=== PATIENT | male | born 1955 | race Caucasian/White ===

== ENCOUNTER 2024-02-28 21:02 | Inpatient (IN) | payer OTHER, SELFPAY ==
[2024-02-28] VITALS (17 sets, daily range): BP systolic 94–116; BP diastolic 25–82; BMI 41.1; BMI 39.2
[2024-02-28 18:54] LABS: % Basophils 0.1 % (0-2); % Immature Granulocytes 0.3 % (0-0.5); % Lymphocytes 18.8 % (20.5-51.1); % Monocytes 10.3 % (1.7-9.3); % Neutrophils 69.5 % (42.2-75.2); Absolute Eosinophils 0.1 10^3/uL (0-0.7); Absolute Lymphocytes 1.4 10^3/uL (1.2-3.4); Absolute Monocytes 0.8 10^3/uL (0.1-0.6); Absolute Neutrophils 5.3 10^3/uL (1.4-6.5); Hemoglobin 5.3 g/dL (13.0-18.0); Mean Corp Hgb Conc. 33.1 g/dL (33.0-37.0); Mean Corpuscular Hgb 33.8 pg (27.0-31.0); Mean Corpuscular Volume 101.9 fL (80.0-94.0); Mean Platelet Volume 9.2 fL (7.4-10.4); Nucleated Red Blood Cells % 0 % (-); Platelet Count 316 10^3/uL (130-400); Red Blood Cell Count 1.57 10^6/uL (4.70-6.10); Red Cell Dist. Width 19.5 % (11.5-14.5); White Blood Cell Count 7.7 10^3/uL (4.8-10.8)
[2024-02-28 19:06] LABS: NT-proBNP 2060 pg/ml
[2024-02-28 19:07] LABS: ALT (SGPT) 24 U/L (0-50); AST (SGOT) 31 U/L (17-59); Albumin 3.4 g/dl (3.5-5.0); Alkaline Phosphatase 49 U/L (38-126); Blood Urea Nitrogen 53 mg/dl (9-20); Calcium 8.8 mg/dl (8.4-10.2); Carbon Dioxide 17 mmol/L (22-30); Chloride 111 mmol/L (98-107); Glucose 128 mg/dl (70-99); Sodium 142 mmol/L (135-145); Total Bilirubin 0.8 mg/dl (0.2-1.3); Total Protein 5.7 g/dl (6.3-8.2); eGFR > 60.00
--- NOTE | 2024-02-28 19:37 | ED.GENMED ---
History of Present Illness
General
Chief Complaint: Chest Pain
Source: patient
Exam Limitations: none
Time Seen by Provider: 02/28/24 19:06
Nursing documentation reviewed up to this point in time: agreed with
History of Present Illness
History of Present Illness:
This is a 68-year-old gentleman who has history of A-fib chronically maintained on Eliquis, history of hypertension, eab-uxgzldh-fiatfqerj, history of gastric bypass, iron deficiency anemia chronically maintained on twice daily oral iron. He has
history of rheumatoid arthritis maintained on Humira as well as methotrexate. He also has history of DJD of left knee, follows with orthopedics every 3 months for steroid injections to his knee, last performed December of this year. Due to
increased pain of his left knee over the past month he has been taking a few doses of ibuprofen generally just once a day over the past 2 to 3 weeks. Because of twice daily oral iron he admits that his stools are always dark in color but 1 month
ago he had 1 to 2 days of loose stools that were very black in color describes this as 'tar in consistency' He denies bright red blood in his has had no nausea nor vomiting.
He has been somewhat fatigued over the past month but more so over the past week with progressive dyspnea on exertion and progressive exertional chest pain worse over the past 4 to 5 days. He has had intermittent lightheadedness more so with brief
activity but no syncopal events nor falls.
No history of similar episodes in the past.
Patient states he underwent colonoscopy a number of years ago that was unremarkable. Since then he has been performing Cologuard tests every 3 years last of which was (-)1-year ago.
History of ift-jodcnpy-eflipipzz diabetes maintained on semaglutide with reported 100 pound weight loss since starting Ozempic. He states his hemoglobin A1c has been well-controlled at around 6.
He was given prescription for laboratory studies by his PCP 1 month ago but admits that he has been too fatigued to have these done.
Past History
Past History
ED Past Medical History: Arrthythmia (Atrial fibrillation), HTN, Hypercholesterolemia, NIDDM and Other (Rheumatoid arthritis, DJD of knees, obesity)
ED Past Surgical History: Bowel resection (Gastric bypass), Cholecystectomy and Orthopedic (Right total knee replacement)
Social History
Tobacco: Former smoker
Alcohol: None
Personal:
Living: with family
Employment: Retired
Family History
Family History: Other (Noncontributory)
Phy Exam
Physical Exam
Physical Exam:
GENERAL: 68-year-old obese gentleman appears his stated age, bright and alert, pleasant, appears in no acute distress. Quite pale in appearance. Conjunctiva
EYE: pupils equal and reactive. Pale conjunctiva. Anicteric
NECK: Supple, nontender, no meningismus, no significant adenopathy.
ENT: oral mucosa is moist. No rhinorrhea.
CARDIAC: irregularly irregular at a rate of 90, no murmur.
LUNGS: Clear breath sounds bilaterally, no acute respiratory distress, no wheezes/rales/rhonchi
ABDOMEN: Rotund, soft, nondistended, without focal tenderness, no r/g, no cvat. normoactive BS. Rectal exam reveals scant firm black stool that is heme positive.
NEUROLOGICAL: Alert and oriented x3, no focal neuro deficits.
SKIN: Warm and dry, significantly pale in color, skin intact. No rash.
MUSCULOSKELETAL: No C/C/E. peripheral pulses are full and equal b/l. No palpable tenderness.
PSYCH: Normal and appropriate interaction.
Scores
Heart Score for Chest Pain Patients
STEMI patient?: No
History: Moderately Suspicious
ECG: Normal
Age: >/= 65 years
Risk Factors: 1 or 2 Risk Factors
Troponin: </= Normal Limit
Heart Score for Chest Pain Patients: 4
Heart Score Risk: 20.3% MACE over next 6 weeks
Course
Orders/Labs/Results
Orders:
Orders
02/28/24 Dinner
NPO
Allow oral meds: Yes
Allow clear liquids: Sips of Clears
02/28/24 18:16
Electrocardiogram (*1) Urgent
Reason for Study: Chest Pain
EKG- Treatment ONCE
02/28/24 18:40
CBC/With Diff [Complete Blood Count/With Diff] Urgent
CMP [Comprehensive Metabolic Panel] Urgent
Ferritin Urgent
Comment: ADD ON
Iron Urgent
Comment: ADD ON
Pro-BNP [NT-proBNP] Urgent
Total Iron Binding Urgent
Comment: ADD ON
02/28/24 19:01
Type+Screen Urgent
02/28/24 19:34
Blood Bank Products [* Blood Bank Products] Urgent
Blood Bank Products: *Packed RBC Leuko(PRBC's)
Quantity: 2
Transfuse Today: Yes
Reason: Anemia
Patient will require pre-treatment for transfusion:: No
02/28/24 19:35
Add On- LAB Urgent
Tests Added?: Fe, IBC, ferritin
02/28/24 19:36
ABO2 Urgent
Recorded [facility] Wristband Number:
Associate notified that ABO2 has been ordered: [id number]
Date: 02/28/24
Time: 19:48
[facility] ID: [id number]
Troponin I Urgent
Pantoprazole 80 mg/100 ml Nss [Protonix] 80 mg in 100 ml IV NOW
Pantoprazole [Protonix IV] 80 mg IV NOW STA
02/28/24 20:28
Admit/Transfer Patient As Directed
Co-Sign Provider:
Level of Care: Inpatient admission
Assign to:: IMU- Intermediate Care
Physician / Group: hospitalist
Diagnosis: GI bleed
Reason for Hospitalization: GI bleed
Expected length of stay greater than two midnights?: Yes
ELOS- Estimated Length of Stay in days: 2
I certify the patient meets the requirements for IP care: Yes
PRN Pain Medication Management As Directed
May give lesser potent ordered pain med per pt: Yes
preference::
Protocol:: Medication orders for pain may be administered in a
manner that supports deferring to patient preference
when the pt is:
- Requesting an ordered lesser potent pain medication.
Least to most potent pain medications are defined
as: acetaminophen < NSAID < tramadol < opioids
(morphine, oxycodone, hydromorphone).
- Requesting a lesser dose of the same medication IF
ORDERED.
- Requesting a less intrusive route of administration
if both routes are prescribed by the provider (PO <
IV).
02/28/24 20:29
Code Status As Directed
Resuscitation Status: Full Code
02/28/24 20:59
Metoclopramide [Reglan] 10 mg .ROUTE .STK-MED ONE
02/28/24 21:02
Metoclopramide [Reglan] 10 mg IV NOW STA
02/28/24 22:07
Acetaminophen [Tylenol] 650 mg PO Q6HPRN PRN
Ondansetron Injectable [Zofran] 4 mg IV Q6HPRN PRN
02/28/24 22:07
Activity As Directed
Activity Level: With Assistance
Bedside Glucose Monitoring As Directed
Frequency: Q6H
INT (Intravenous Needle Therapy) As Directed
Comment: Place 2 IV catheters of the largest bore possible until stable
Orthostatic Vital Signs As Directed
Orthostatic VS Frequency: Now
Comment: then every four hours for twenty-four hours
Pneumatic Compression Sleeves As Directed
Type: Knee high
Vital Signs As Directed
Frequency: Per unit guidelines
DX Deep Vein Thrombosis Video Routine
02/28/24 23:00
H&H Q8H
02/29/24 00:00
Insulin Aspart Corrective Low [Novolog Flexpen-Low Resistance] See Protocol SC Q6H
02/29/24 05:36
Pantoprazole 80 mg/100 ml Nss [Protonix] 80 mg in 100 ml IV Q10H
02/29/24 06:00
Folate IN AM
Iron IN AM
Total Iron Binding IN AM
Vitamin B12 IN AM
02/29/24 08:00
FOLic ACID [Folvite] 1 mg PO DAILY
Losartan [Cozaar] 100 mg PO DAILY
03/01/24 11:00
DC Protocol for Telemetry ONCE
Abnormal Lab Results
02/28/24 02/28/24
18:40 19:01
RBC 1.57 L 10^6/uL
(4.70-6.10)
Hgb 5.3 L* g/dL
(13.0-18.0)
Hct 16.0 L* %
(39.0-52.0)
MCV 101.9 H fL
(80.0-94.0)
MCH 33.8 H pg
(27.0-31.0)
RDW 19.5 H %
(11.5-14.5)
Absolute Monos (auto) 0.8 H 10^3/uL
(0.1-0.6)
Lymphocytes % 18.8 L %
(20.5-51.1)
Monocytes % 10.3 H %
(1.7-9.3)
Chloride 111 H mmol/L
(98-107)
Carbon Dioxide 17 L mmol/L
(22-30)
BUN 53 H mg/dl
(9-20)
Glucose 128 H mg/dl
(70-99)
Iron 242 H ug/dl
(49-181)
% Saturation 82 H %
(20-50)
Total Protein 5.7 L g/dl
(6.3-8.2)
Albumin 3.4 L g/dl
(3.5-5.0)
Crossmatch IS Only See Detail
02/28/24 18:40
02/28/24 18:40
Vital Signs
Initial and Last Documented VS:
Initial Vital Signs
Temp Pulse Resp BP Pulse Ox
97.6 F 87 16 107/60 100
02/28/24 18:22 02/28/24 18:22 02/28/24 18:22 02/28/24 18:22 02/28/24 18:22
Last Documented Vital Signs
Temp Pulse Resp BP Pulse Ox
97.7 F 79 14 125/56 99
02/29/24 01:23 02/29/24 01:23 02/29/24 01:23 02/29/24 01:23 02/29/24 00:00
MDM/Problems Addressed
Differential Diagnosis Includes:
Concern for symptomatic anemia, GI bleed, acute coronary syndrome, CHF.
Labs thus far show significant anemia with hemoglobin of 5.3.
History and exam most consistent with severe, symptomatic anemia.
Rectal exam is heme positive and reported black stools, ibuprofen use I suspect slow upper GI bleed as source of anemia.
He does no prior history of iron deficiency but no prior history of GI bleed. I suspect iron deficiency thought to be related to prior gastric bypass.
EKG shows atrial fibrillation with controlled ventricular response. No evidence of ischemia. Troponin is pending.
BNP is elevated at 2000. Patient may have an element of CHF however appears comfortable at rest and lungs are overall clear to auscultation. Will check chest x-ray.
Patient will be typed and crossed and transfused 2 units of packed red blood cells this evening for severe anemia.
Will initiate IV Protonix bolus and drip for suspected, occult upper GI bleed.
Will add iron studies to blood in the lab.
Will admit to hospitalist service.
Chronic conditions affecting care: DM, HTN, Arrhythmia, Previous abdomnial surgery (Gastric bypass) and Immunosuppressed (Chronically maintained on Humira and methotrexate)
*Pulse Oximetry
Patient hypoxic: no
*EKG
Interpreted by ED Provider?: Yes
Comparison EKG: no comparison EKG present
Rate: normal
Rhythm: a-fib
[place]: normal axis
Interval: long QT
QRS Pattern: normal QRS
Ischemia: no ischemia
*[employer]ip[employer] Worker Interpretation
Rate: normal
Rhythm: a-fib
*Critical Care Note
Total Time (30-74mins, 75-104mins- exclusive of procedures): 30
comment:
Critical care statement: A total of 30 minutes of critical care time was provided for this patient. This includes management of unstable vital signs, evaluation of the patient at bedside, reviewing the patient's pertinent medical records, discussion
with consultants, review of old EKGs and review of pertinent medical records. This time with separate from time utilized to perform the aforementioned documented procedures
Update Note
Update Note:
Patient has begun to pass numerous black liquid stools, and is insistent on using bedside commode. While doing so he becomes significantly tachycardic and short of breath but continues to deny dizziness nor lightheadedness but blood pressure
somewhat soft in the 90s while sitting on commode.
Blood transfusion has been initiated.
Due to significant tachycardia, mild hypotension with significant orthostasis, ongoing GI bleed, coagulopathy related to Eliquis, will reverse Eliquis with Kcentra, continue IV fluids, IV Protonix and patient will be admitted to IMU.
ED Attending Note
-
Portions of this chart may have been created with voice recognition software.� Occasional wrong word or��sound alike� substitutions may have occurred due to the inherent limitations of voice recognition software.
Discharge Plan
Departure
Patient Disposition: Admit
Date of Disposition: 02/28/24
Time of Disposition: 19:44
Admit to: IMU
Admit to doctor: Dread
Presentation/result/management discussed w/ accepting MD/DO: Hospitalist
Condition: Serious
Discharge Problem:
Acute upper gastrointestinal hemorrhage, severe symptomatic anemia, Exertional angina, Chronic atrial fibrillation
Interventions
Interventions:
*Risk Screen - Suicide Last Done: 02/28/24 22:39
*General Assessment Last Done: 02/28/24 18:56
*Neglect/Abuse Screening Last Done: 02/28/24 18:23
ED- Fall Risk Assessment Last Done: 02/28/24 19:11
*ED COVID-19 Vaccine History Last Done: 02/28/24 22:39
*Nursing Disposition Last Done: 02/28/24 22:21
ED- Cardiac Assessment Last Done: 02/28/24 19:11
Discharge Date and Time
Discharge Date/Time: 02/28/24 22:22
[2024-02-28] MEDS: PROTONIX IV 80 MG IV (19:47)
[2024-02-28] MEDS: PROTONIX 100 IV (19:49)
[2024-02-28 20:14] LABS: Troponin I < 0.012 ng/ml
[2024-02-28 20:35] LABS: Iron 242 ug/dl (49-181)
[2024-02-28 20:44] LABS: Percent Saturation 82 % (20-50); Total Iron Binding Capacity 295 ug/dl (261-462)
--- NOTE | 2024-02-28 20:47 | HPS.HSE ---
Family Physician
-
Family Physician: Isael Recinos
Chief Complaint
-
Melena
History of Present Illness
68-year-old male with past medical history significant for hypertension, paroxysmal atrial fibrillation on anticoagulation with apixaban and jdz-snctbvt-jygjwrcaq diabetes as well as diarrhea presenting to the emergency department with melena and
shortness of breath.
Patient reported that he has been having worsening pain in the left knee and he has been using additional ibuprofen which he was using before. He takes 400 mg of ibuprofen twice a day at least for the last 2 weeks. He states that he is on iron
supplementation because he had a low hemoglobin was about a year ago and his last hemoglobin measured in his system was actually fifteen 1 year ago. Patient reported that his stools have always been darkish green due to the iron supplementation.
However 4 days ago started having dark tarry stools. He denied having any abdominal pain. He denied any nausea or vomiting. He denied hematochezia. He reports feeling lightheaded and dizzy. He reports dyspnea on exertion with any physical
activity. He reported that 3 days ago he was told by his daughter that he appeared pale. Overnight he had an episode of chest pain radiating to his left arm lasting a few minutes but is currently resolved. Denies prior history of GI bleed. No
recent endoscopic colonoscopy.
In the ED the patient actually had a large melanotic bowel movement. He was guaiac positive.
Blood pressure was 100/50, pulse was 80s and he was satting 98% on room air. Hemoglobin was 5.3 with an MCV of 101. Platelet count was normal. Troponin was negative at 0.012. ECG was unremarkable with A-fib at a rate of 91 and no ischemic
changes. Chemistries were within normal limits except for a bicarb of 17.
Medical History
Past Medical History
Past Medical History: Reports Arrhythmia (Home atrial fibrillation) and HTN
Additional Past Medical History:
Anemia/iron deficiency
Past Surgical History: Reports Orthopedic
Additional Past Surgical History:
Right total knee arthroplasty
Social History
Tobacco: Non-smoker
Alcohol: None
Drug: None
Personal:
Living: With Family
Family History
Family History: Not pertinent
Allergies / Home Medications
Allergies reflects when Allergies were last updated in [facility].
Home Medications with original date entered in [facility]
Allergy/Medication List:
Allergies
Allergy/AdvReac Type Severity Reaction Status Date / Time
morphine Allergy Unknown Verified 02/28/24 18:21
Home Medications
adalimumab 40 mg/0.4 mL subcutaneous syringe kit (Humira(CF)) 40 mg SC WE 02/28/24
apixaban 5 mg tablet (Eliquis) 5 mg PO BID 02/28/24
cholecalciferol (vitamin D3) 125 mcg (5,000 unit) tablet 125 mcg PO DAILY 02/28/24
ferrous sulfate 325 mg (65 mg iron) tablet 325 mg PO BID 02/28/24
folic acid 1 mg tablet 1 mg PO DAILY 02/28/24
losartan 100 mg tablet 100 mg PO DAILY 02/28/24
metformin 500 mg tablet 500 mg PO DAILY 02/28/24
methotrexate 1 ml SC WE 02/28/24
pravastatin 10 mg tablet 10 mg PO HS 02/28/24
semaglutide 1 mg/dose (4 mg/3 mL) subcutaneous pen injector (Ozempic) 1 mg SC WE 02/28/24
tadalafil 10 mg tablet 10 mg PO DAILYPRN PRN ed 02/28/24
Review of Systems
-
Constitutional: Reports No Symptoms and Fatigue
EENT: Reports No Symptoms
Respiratory: Reports Trouble Breathing
Cardiac: Reports Chest Pain
Abdomen/GI: Reports Black Stools
: Reports No Symptoms
Musculoskeletal: Reports No Symptoms
Skin: Reports No Symptoms
Neurological: Reports No Symptoms
Endocrine: Reports No Symptoms
Hematologic/Lymphatic: Reports No Symptoms
Psych: Reports No Symptoms
Physical Exam
Vital Signs
Vital Signs
Temp Pulse Resp BP Pulse Ox
97.6 F 93 23 103/52 100
02/28/24 18:22 02/28/24 20:34 02/28/24 20:34 02/28/24 20:34 02/28/24 19:45
Physical Exam
General: No Apparent Distress and Conversant
HEENT: NormoCephalic, Moist mucous membranes, Atraumatic and PERRLA
Respiratory: Clear
Cardiac: S1/S2 and Irregular Rhythm
Breast: Deferred by me
GI: Soft, Non Tender, Non Distended and Normal Bowel Sounds
Rectal: Black and Hem Positive
Genito-urinary: Deferred by me
Musculoskeletal: No Clubbing, No Cyanosis and No Edema
Skin: Other (pale appearing)
Neuro: AO x 3 and Nonfocal/grossly intact
Psych: Calm
Laboratory Results
-
02/28/24 18:40
02/28/24 18:40
Laboratory Results
Total Bilirubin 0.8 mg/dl (0.2-1.3) 02/28/24 18:40
AST 31 U/L (17-59) 02/28/24 18:40
ALT 24 U/L (0-50) 02/28/24 18:40
Alkaline Phosphatase 49 U/L (38-126) 02/28/24 18:40
Troponin I < 0.012 ng/ml 02/28/24 19:36
Data Reviewed
-
Diagnostic Radiology: Image Personally Visualized and interpreted
Medical Tests (Nuc Med, Echo, EKG etc): Image Personally Visualized and interpreted
Lab Data: Labs Reviewed by me
Old Records: Reviewed
Impression/Plan
-
IMPRESSION:
PLAN:
1.GI Bleed - Upper GI bleed in setting of NSAID and Anticoagulation with apixaban over the last 2 weeks or more. Likely subacute episode with a slow downward trend in hemoglobin for a few weeks. MCV however elevated. Hemodynamically stable at
this time. Hemodynamically unstable with MAP < 56. Hgb 5.3
- admit to telemetry
- NPO except sips and clears
- bolus 1 L NS
- holding apixaban, last dose was about 3 hours ago, no charcoal.
- Kcentra
- type and screen and transfuse for goal hgb of 7
- protononix gtt
- holding losartan
- iron indices and anemia panel
- GI consultation
2. AFIB
- holding apixaban. Rate control off any beta blockade
3. DM II
- holding metformin
- blood glucose checks q 6 with sliding scale
[2024-02-28] MEDS: REGLAN 10 MG IV (21:03)
[2024-02-28 21:16] LABS: Ferritin 48.6 ng/ml (17.9-464.0)
[2024-02-28] MEDS: NSS 250 IV ×2 (21:22→21:50)
[2024-02-28 21:36] LABS: INR 2.06; PT 23.3 Sec (11.4-14.6)
[2024-02-28 21:37] LABS: APTT 33.2 Sec (23.4-35.0)
[2024-02-28] MEDS: KCENTRA 100 UNIT IV (21:42)
--- NOTE | 2024-02-28 22:50 | PTCARENOTE ---
Pt arrives from ED on stretcher. Pulled pt over to bed. Patient receiving 1 unit of blood. 1 more unit ordered. Did hand off with ED RN. Patient on protonix gtt. Assessed patient-see flowsheet. Went over pt being on bed rest due to low hgb. Pt
understands its for his safety. Call smith within reach. 2nd order of blood called for.
[2024-02-29] VITALS (35 sets, daily range): BP systolic 101–142; BP diastolic 44–103; BMI 39.2
[2024-02-29 00:19] LABS: Glucose - Point of Care 139 mg/dl (70-99)
[2024-02-29 04:34] LABS: INR 1.56; PT 18.9 Sec (11.4-14.6)
[2024-02-29 04:41] LABS: Hematocrit 17.8 % (39.0-52.0); Hemoglobin 6.1 g/dL (13.0-18.0)
[2024-02-29 04:49] LABS: Iron 211 ug/dl (49-181); Percent Saturation 83 % (20-50); Total Iron Binding Capacity 253 ug/dl (261-462)
--- NOTE | 2024-02-29 05:02 | W.PN.UPDATE ---
Update Note
Progress Note Update
RN notified Hgb 6.1/17.8, Patient stable, stable VS 112/50, 70's, 97.8, 20, 99%, Consent signed and in chart, will order 1 unit PRBC's.
[2024-02-29] MEDS: PROTONIX 100 IV ×2 (05:33→15:09)
[2024-02-29 05:45] LABS: Folate 19.5 ng/ml (2.76-20); Vitamin B12 230 pg/ml (239-931)
[2024-02-29 05:59] LABS: Glucose - Point of Care 117 mg/dl (70-99)
--- NOTE | 2024-02-29 07:06 | CON.GI ---
Addendum entered and electronically signed by Goldie James DO 02/29/24 08:55:
I saw and examined the patient.
The OUTREACH LIAISON or PA's note was reviewed and I agree with the note.
Comment: 68-year-old male with past medical history of A-fib on Eliquis, type 2 diabetes on metformin and ozempic (last dose 02/26), hx CHELSI, RA on Humira and MTX, Hx gastric bypass (2001), HTN, hx seizure d/o, nephrolithaisis admitted with dizziness,
shortness of breath and black tarry stool in the setting of heavy NSAID use. Hemoglobin on arrival 5.3 --> 6.2 following 2 units of PRBC, received a 3rd unit this morning; BUN elevated to 53. He had 2 large burgundy stools in the ER, no BM since
that time.
He was mildly hypotensive with BPs in the 90/60s and tachycardic, but has remained hemodynamically stable with fluid resuscitation. INR 2.06 --> 1.56 following kcentra.
#Symptomatic Anemia
#Melena 2/2 suspected UGIB vs. small bowel bleed vs. right-sided colonic source
#NSAID use
Plan/Recommendations:
-2 large bore peripheral gauge IVs
-s/p 3 units PRBC; inadequate response to initial 2 units; no episodes of bleeding since the ER
-active T&C
-H&H q8 hours
-PPI gtt
-last dose of eliquis 02/27, given Kcentra, INR 1.56
-keep NPO-- plan for EGD today, will require intubation as last dose of ozempic was on and high risk for aspiration
Original Note:
Consultation
-
Date/Time Consultation Requested: 02/28/24 2330
Date/Time Consultation Performed: 02/29/24 0700
Requesting Provider: Sheryl Canada MD
Performing Provider: ISABELLA Grace, Purnima James DO
Reason for Consultation: GI bleed
Medical History
Chief Complaint / HPI
Chief Complaint: short of breath/dizziness
History of Present Illness:
Pt is a 68yo with hx afib on Eliquis, NIDDM on Ozempic/metformin, prior iron deficiency on iron, arthritis on Methotrexate/ Humira, Chan en Y bypass 2001, HTN, prior seizure, and renal stone presents with onset of dizziness and shortness of
breath. He admits to black diarrhea a few weeks ago but admits stools always dark with iron. He also admits to difficulty with medication for arthritis and recent increased NSAID use to Ibuprofen BID last few weeks. On admission he is noted with
hbg 5.3 with 2 large burgundy stools in ER. He was given 2 units and hbg only up to 6.1 with BUN 52.
At this time he otherwise admits to dry heave but no dysphagia, GERD, abdominal pain, or red stools. Distant hx EGD ? with bypass and colonoscopy at [facility] 4-5 years ago normal per his recall and Cologuard 2022 neg. He admits to wt loss in
2001 with bypass as was up to 600lbs. He recently was up to 400 lbs with recent wt loss with Ozempic use.
Past Medical History
Past Medical History: Arrhythmias (afib on Eliquis), HTN, NIDDM, Seizures and Other (renal stones )
Past Surgical History: Other (chan en Y )
Social History
Tobacco: Non-Smoker
Alcohol: None
Drug: None
Living: With Family (daughter)
Employment: Retired
Family History
Family History: Other (no family hx colon CA or polyps)
Allergies / Home Medications
Allergy/AdvReac Type Severity Reaction Status Date / Time
morphine Allergy Unknown Verified 02/28/24 18:21
�Medication �Instructions �Recorded
adalimumab 40 mg/0.4 mL 40 mg SC WE 02/28/24
subcutaneous syringe kit
(Humira(CF))
apixaban 5 mg tablet (Eliquis) 5 mg PO BID 02/28/24
cholecalciferol (vitamin D3) 125 125 mcg PO DAILY 02/28/24
mcg (5,000 unit) tablet
ferrous sulfate 325 mg (65 mg 325 mg PO BID 02/28/24
iron) tablet
folic acid 1 mg tablet 1 mg PO DAILY 02/28/24
losartan 100 mg tablet 100 mg PO DAILY 02/28/24
metformin 500 mg tablet 500 mg PO DAILY 02/28/24
methotrexate 1 ml SC WE 02/28/24
pravastatin 10 mg tablet 10 mg PO HS 02/28/24
semaglutide 1 mg/dose (4 mg/3 mL) 1 mg SC WE 02/28/24
subcutaneous pen injector (Ozempic)
tadalafil 10 mg tablet 10 mg PO DAILYPRN PRN ed 02/28/24
Review of Systems
-
History Source: Patient
Constitutional: Reports Weight Loss
EENT: Reports No Symptoms
Respiratory: Reports Trouble Breathing
Cardiac: Reports Chest Pain (prior to admission no resolved )
Abdomen/GI: Reports Nausea (dry heaves ) and Black Stools (with large burgundy stool in ER)
: Reports No Symptoms
Musculoskeletal: Reports Joint Pain (with NSAID use)
Skin: Reports No Symptoms
Neurological: Reports Dizzy and Weakness
Endocrine: Reports No Symptoms
Hematologic/Lymphatic: Reports Bleeding
Vital Signs
Temp Pulse Resp BP Pulse Ox
97.8 F 68 14 123/59 99
02/29/24 05:48 02/29/24 05:48 02/29/24 05:48 02/29/24 05:48 02/29/24 00:00
Physical Exam
Exam
General: Well Developed, Well Nourished and No Apparent Distress
HEENT: Normocephalic and Anicteric
Respiratory: Clear
Cardiac: Regular Rhythm
GI: Soft, Non Tender and Non Distended
Musculoskeletal: No Clubbing and No Cyanosis
Skin: Warm and Dry
Neuro: Awake, Alert and AO x 3
Psych: Calm
Results
WBC 7.7 10^3/uL (4.8-10.8) 02/28/24 18:40
Hgb 6.1 g/dL (13.0-18.0) L* 02/29/24 04:07
Hct 17.8 % (39.0-52.0) L* 02/29/24 04:07
MCV 101.9 fL (80.0-94.0) H 02/28/24 18:40
Plt Count 316 10^3/uL (130-400) 02/28/24 18:40
Absolute Neuts (auto) 5.3 10^3/uL (1.4-6.5) 02/28/24 18:40
PT 18.9 Sec (11.4-14.6) H 02/29/24 04:07
INR 1.56 02/29/24 04:07
APTT 33.2 Sec (23.4-35.0) 02/28/24 21:19
Sodium 142 mmol/L (135-145) 02/28/24 18:40
Potassium 4.0 mmol/L (3.5-5.1) 02/28/24 18:40
Chloride 111 mmol/L (98-107) H 02/28/24 18:40
Carbon Dioxide 17 mmol/L (22-30) L 02/28/24 18:40
BUN 53 mg/dl (9-20) H 02/28/24 18:40
Creatinine 0.8 mg/dL (0.7-1.3) 02/28/24 18:40
Calcium 8.8 mg/dl (8.4-10.2) 02/28/24 18:40
Total Bilirubin 0.8 mg/dl (0.2-1.3) 02/28/24 18:40
AST 31 U/L (17-59) 02/28/24 18:40
ALT 24 U/L (0-50) 02/28/24 18:40
Alkaline Phosphatase 49 U/L (38-126) 02/28/24 18:40
Diagnostic Image Results:
02/28/24 CXR
Suspected mild pulmonary vascular congestion.
Prior GI Procedures:
EGD: ? years ago with bypass
Colonoscopy: 4-5 years ago [facility] recall as normal , cologuard 2022 neg
Assessment / Plan
-
Pt is a 68yo with hx afib on Eliquis, NIDDM on Ozempic/metformin, prior iron deficiency on iron, arthritis on Methotrexate/ Humira, Chan en Y bypass 2001, HTN, prior seizure, and renal stone presents with onset of dizziness and shortness of
breath. He admits to black diarrhea a few weeks ago but admits stools always dark with iron. He also admits to difficulty with medication for arthritis and recent increased NSAID use to Ibuprofen BID last few weeks. On admission he is noted with
hbg 5.3 with 2 large burgundy stools in ER. He was given 2 units and hbg only up to 6.1 with BUN 52.
-melena/burgundy stool concern for acute UGI bleed with symptomatic anemia and BUN elevations
-recent increased NSAID use for arthritis
-symptomatic anemia with hx iron deficiency prior to admission- on chronic oral iron
-afib on Eliquis prior to admission s/p K-centra in ER
-NIDDM - Ozempic /metformin
-hx Chan en Y bypass
-recent wt loss with Ozempic use
-B12 deficiency-- 230 on admission
other med problems:
-HTN
-seizures
-renal stones
PLAN:
etiology of melena and burgundy stools related to UGI bleed- PUD with recent NSAID use, anastomotic ulcer with hx bypass, vs other
plan for EGD today
s/p transfusion 3rd unit running now
s/p Kcentra in ER
trend hbg and stool record
NPO
cont PPI gtt
Eliquis hold ( Last dose 02/27)
s/p 1 dose reglan in ER last PM will add E mycin prior to EGD to clear stomach prior to scope
Pt also with B12 deficiency with hx bypass-- treat per medical team
updated nursing
-
-
-
Thank you for consultation and allowing me to participate in the patient's care. Please call the precision agriculture specialist GI physician during the after hours with any questions or concerns.
[2024-02-29 07:33] LABS: Glucose - Point of Care 110 mg/dl (70-99)
[2024-02-29] MEDS: FOLVITE 1 MG PO (08:09)
--- NOTE | 2024-02-29 08:33 | W.PN.HOSP.TC ---
Today's Communication/Plan
-
Hold Eliquis
Okay to start tonight Lovenox for DVT prophylaxis as per GI
Monitor H&H Q8H, transfuse as needed to maintain Hgb>7
Assessment / Plan
Assessment / Plan
Physical Exam
General: No Apparent Distress and Conversant
HEENT: NormoCephalic, Moist mucous membranes
Respiratory: Clear
Cardiac: S1/S2 and Irregular Rhythm
GI: Soft, Non Tender, Non Distended and Normal Bowel Sounds
Musculoskeletal: No Cyanosis and No Edema
Skin: Warm. Dry.
Neuro: AAO x 3 and Nonfocal/grossly intact
Psych: Calm
Assessment/Plan
Coy Cruz 68 M UGIB Hgb 5.3 hemodynamically tenuous on admission. Progressive MORRISON and exertional CP x 1 week, worse over past 4 days. black stools, heme (+). on eliquis for afib. has been taking ibuprofen once daily for 2-3 weeks d/t DJD left
knee. Remote hx of gastric bypass, but no prior hx of GI bleed. Admit to IMU. PPI gtt. Kcentra given. Anticoagulation held. GI consulted. NPO, IV fluids
GI Bleed - Upper GI bleed in setting of NSAID and Anticoagulation with apixaban over the last 2 weeks or more
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
- Continue to monitor in IMU
- NPO as per GI
- holding apixaban, last dose was 02/28/24
- type and screen and transfuse for goal hgb of 7
- protononix gtt
- holding losartan
- Continue to hold Eliquis as per discussion with on-call cda teacher, but okay to start Lovenox for DVT prophylaxis as per gastroenterology, appreciate gastroenterology
- GI consultation
AFIB
- holding apixaban. Rate control off any beta blockade
DM II
- holding metformin
- blood glucose checks q 6 with sliding scale
DVT Prophylaxis: Lovenox subq (okay to start as per GI discussion on 02/29/24). SCDs.
Code Status: Full Code
Anticipated Discharge: 24 - 48 hours
Subjective/Interval History
-
Date of Service: February 29, 2024
Patient was seen and examined in IMU after his endoscopy procedure. He reported feeling good, denied any complaints.
Objective Data
-
Labs:
Laboratory Results
02/28/24 02/29/24 02/29/24
21:19 04:07 08:30
WBC Pending
Hgb 6.1 L* Pending
Hct 17.8 L* Pending
Plt Count Pending
PT 23.3 H 18.9 H
INR 2.06 1.56
APTT 33.2
Sodium Pending
Potassium Pending
Chloride Pending
Carbon Dioxide Pending
BUN Pending
Creatinine Pending
Glucose Pending
Calcium Pending
Total Bilirubin Pending
AST Pending
ALT Pending
Alkaline Phosphatase Pending
02/29/24 02/29/24
12:00 20:00
WBC
Hgb Pending Pending
Hct Pending Pending
Plt Count
PT
INR
APTT
Sodium
Potassium
Chloride
Carbon Dioxide
BUN
Creatinine
Glucose
Calcium
Total Bilirubin
AST
ALT
Alkaline Phosphatase
Vital Signs:
Vital Signs
Temp Pulse Resp BP Pulse Ox
97.9 F 68 17 117/51 99
02/29/24 08:08 02/29/24 08:08 02/29/24 08:08 02/29/24 08:08 02/29/24 00:00
I&O
02/28/24 02/29/24 03/01/24
06:59 06:59 06:59
Intake Total 580 / 580 250 / 250
Output Total 800 / 800
Balance -220 / -220 250 / 250
[2024-02-29] MEDS: ERYTHROCIN 260 MG IV (08:48)
[2024-02-29 11:40] LABS: Glucose - Point of Care 131 mg/dl (70-99)
[2024-02-29] MEDS: ZOFRAN 4 MG IV (11:55)
[2024-02-29] MEDS: COMPAZINE 5 MG IV (12:11)
[2024-02-29 12:42] LABS: Hematocrit 20.6 % (39.0-52.0); Hemoglobin 7.2 g/dL (13.0-18.0)
[2024-02-29 12:56] LABS: % Basophils 0.2 % (0-2); % Eosinophils 1.5 % (0-6); % Immature Granulocytes 0.6 % (0-0.5); % Lymphocytes 12.6 % (20.5-51.1); % Monocytes 4.6 % (1.7-9.3); % Neutrophils 80.5 % (42.2-75.2); Absolute Eosinophils 0.1 10^3/uL (0-0.7); Absolute Immature Granulocytes 0.1 10^3/uL (0-0.05); Absolute Lymphocytes 1.1 10^3/uL (1.2-3.4); Absolute Monocytes 0.4 10^3/uL (0.1-0.6); Mean Corp Hgb Conc. 34.8 g/dL (33.0-37.0); Mean Corpuscular Hgb 32.9 pg (27.0-31.0); Mean Corpuscular Volume 94.6 fL (80.0-94.0); Mean Platelet Volume 9.5 fL (7.4-10.4); Nucleated Red Blood Cells % 0 % (-); Platelet Count 242 10^3/uL (130-400); Red Blood Cell Count 2.22 10^6/uL (4.70-6.10); Red Cell Dist. Width 19.1 % (11.5-14.5); White Blood Cell Count 8.6 10^3/uL (4.8-10.8)
--- NOTE | 2024-02-29 13:00 | PTCARENOTE ---
Critical lab result received- HGB 7.2, HCT 20.6. Dr. Puentes notified via TT, no further orders received at this time.
--- NOTE | 2024-02-29 13:30 | PTCARENOTE ---
Pt presents as assessed. Aox3. Afib on tele monitor. To and from GI via stretcher. at bedside, updated on plan of care. Remains NPO at this time. Protonix gtt infusing as ordered. Call smith within reach, ringing appropriately.
[2024-02-29 13:51] LABS: Glucose - Point of Care 122 mg/dl (70-99)
--- NOTE | 2024-02-29 14:55 | CM ---
CM reviewed chart. CM introduced self and role. Patient lives at home with his daughter. He is independent. He drives. 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 He has Dr. Haley Recinos has his PCP and [facility] in [place] as his pharmacy.
He lives in a apartment. 2 steps to enter in the home. He uses a cane from time to time. He denied any +SDOHs.
ANTICIPATED D/C PLAN: Return to home when medically cleared.
[2024-02-29 15:03] LABS: ALT (SGPT) 22 U/L (0-50); AST (SGOT) 36 U/L (17-59); Albumin 2.8 g/dl (3.5-5.0); Alkaline Phosphatase 30 U/L (38-126); Blood Urea Nitrogen 52 mg/dl (9-20); Calcium 8.6 mg/dl (8.4-10.2); Carbon Dioxide 16 mmol/L (22-30); Chloride 112 mmol/L (98-107); Estimated Creatinine Clearance 108 ml/min; Glucose 109 mg/dl (70-99); Magnesium 1.7 mg/dl (1.6-2.3); Potassium 4.1 mmol/L (3.5-5.1); Sodium 138 mmol/L (135-145); Total Bilirubin 1.5 mg/dl (0.2-1.3); Total Protein 4.9 g/dl (6.3-8.2); eGFR > 60.00
--- NOTE | 2024-02-29 17:45 | PTCARENOTE ---
Pt for orthostatic VS. D/W Dr. Puentes d/t low HGB. Advised to hold on orthos for today and attempt to obtain tomorrow.
[2024-02-29] MEDS: LOVENOX 40 MG SC (18:06)
[2024-02-29 18:50] LABS: Glucose - Point of Care 90 mg/dl (70-99)
[2024-02-29 20:31] LABS: Blood Urea Nitrogen 33 mg/dl (9-20); Calcium 8.4 mg/dl (8.4-10.2); Carbon Dioxide 20 mmol/L (22-30); Chloride 112 mmol/L (98-107); Estimated Creatinine Clearance 108 ml/min; Glucose 92 mg/dl (70-99); Potassium 4.3 mmol/L (3.5-5.1); Sodium 141 mmol/L (135-145); eGFR > 60.00
[2024-02-29 20:32] LABS: Hematocrit 20.1 % (39.0-52.0)
[2024-03-01] VITALS (17 sets, daily range): BP systolic 99–143; BP diastolic 50–128
[2024-03-01 00:09] LABS: Glucose - Point of Care 113 mg/dl (70-99)
[2024-03-01] MEDS: PROTONIX 100 IV (02:09)
[2024-03-01 02:34] LABS: Hematocrit 18.8 % (39.0-52.0); Hemoglobin 6.6 g/dL (13.0-18.0)
--- NOTE | 2024-03-01 03:32 | PTCARENOTE ---
Caring for patient overnight. aaox3, pleasant. Denies any pain. NO BM's overnight so far. Checking hgb q6h. Last hgb 6.6, reached out to SCHOOL CUSTODIAN, order for 1UPRBC. No obvious signs of bleeding, no BM's. VSS. Afebrile. Continues to be bedrest until
stable. NO other issues at this time. Will continue to monitor.
[2024-03-01 05:51] LABS: Glucose - Point of Care 97 mg/dl (70-99)
[2024-03-01 08:05] LABS: Glucose - Point of Care 91 mg/dl (70-99)
[2024-03-01] MEDS: FOLVITE 1 MG PO (08:52)
[2024-03-01 09:17] LABS: Hematocrit 24.1 % (39.0-52.0); Hemoglobin 8.1 g/dL (13.0-18.0); Mean Corpuscular Hgb 31.9 pg (27.0-31.0); White Blood Cell Count 7.4 10^3/uL (4.8-10.8)
[2024-03-01 09:54] LABS: ALT (SGPT) 23 U/L (0-50); AST (SGOT) 33 U/L (17-59); Alkaline Phosphatase 50 U/L (38-126); Blood Urea Nitrogen 23 mg/dl (9-20); Calcium 8.5 mg/dl (8.4-10.2); Carbon Dioxide 18 mmol/L (22-30); Chloride 110 mmol/L (98-107); Estimated Creatinine Clearance 108 ml/min; Glucose 155 mg/dl (70-99); Magnesium 1.7 mg/dl (1.6-2.3); Potassium 3.9 mmol/L (3.5-5.1); Sodium 137 mmol/L (135-145); Total Bilirubin 1.3 mg/dl (0.2-1.3); Total Protein 5.2 g/dl (6.3-8.2); eGFR > 60.00
--- NOTE | 2024-03-01 09:56 | W.PN.GI.CBS2 ---
Today's Communication / Plan
-
Advance to CLD, if PM H&H stable, okay to advance to low-residue diet. Hold AC today
Assessment / Plan
-
68-year-old male with past medical history of A-fib on Eliquis, type 2 diabetes on metformin and ozempic (last dose 02/26), hx CHELSI, RA on Humira and MTX, Hx gastric bypass (2001), HTN, hx seizure d/o, nephrolithiasis admitted with dizziness,
shortness of breath and black tarry stool in the setting of heavy NSAID use. Hemoglobin on arrival 5.3, Kcentra given in ER. He was mildly hypotensive with BPs in the 90/60s and tachycardic, responded well to IVF. He has received a total 4 units of
PRBC since admission (3 upon arrival, 1 unit this morning), current hgb 8.1.
Hgb 5.3 --> 6.1 --> 7.2 --> 7.0 --> 6.6 --> 8.1
BUN elevated to 53 --> 52 --> 33 --> 23
He is s/p EGD yesterday with successful treatment of actively bleeding AVMs. Due to his anticoagulation, therapeutic intervention was somewhat limited, so multiple modalities were utilized in attempt to obtain adequate and definitive hemostasis,
including, injection with epinephrine, placement of hemostatic clips on actively bleeding AVMs as well as application of hemospray. At the end of the procedure, there were no signs of ongoing bleeding. Given he has had no bowel movements since
arrival, which is reassuring.
Plan/Recommendations:
-d/c ppi gtt; okay to transition to PO PPI
-clear liquids
-if repeat Hgb stable in afternoon, advance to low residue diet for dinner
-would favor holding eliquis for another day and resuming tomorrow
-patient counseled on avoidance of NSAIDs
Subjective
Subjective
Date of Service: March 01, 2024
Coy is s/p EGD yesterday which revealed several bleeding/stigmata of recent bleeding gastric AVMS-- tx with epinephrine, hemostatic clips and hemospray. No active bleeding at the end of the procedure.
Hgb 7 --> 6.6 this morning, no bowel movement since procedure yesterday. He received 1 unit of PRBC, post-transfusion CBC was 8.1. Patient states he feels great, he offers no complaints.
Objective
Data Reviewed
Laboratory Data:
Laboratory Results
03/01/24 08:57
03/01/24 08:57
Laboratory Results
PT 18.9 Sec (11.4-14.6) H 02/29/24 04:07
INR 1.56 02/29/24 04:07
APTT 33.2 Sec (23.4-35.0) 02/28/24 21:19
Magnesium 1.7 mg/dl (1.6-2.3) 03/01/24 08:57
Total Bilirubin 1.3 mg/dl (0.2-1.3) 03/01/24 08:57
AST 33 U/L (17-59) 03/01/24 08:57
ALT 23 U/L (0-50) 03/01/24 08:57
Alkaline Phosphatase 50 U/L (38-126) 03/01/24 08:57
Vital Signs and I&O:
Vital Signs
Temp Pulse Resp BP Pulse Ox
97.8 F 62 14 127/61 96
03/01/24 07:05 03/01/24 06:33 03/01/24 06:33 03/01/24 06:33 03/01/24 06:33
I&O
02/29/24 03/01/24 03/02/24
06:59 06:59 06:59
Intake Total 580 / 580 650 / 650
Output Total 800 / 800 950 / 950 350 / 350
Balance -220 / -220 -300 / -300 -350 / -350
Physical Exam
Physical Exam
HEENT: Anicteric and Moist mucous membranes
GI: Soft, Non Distended and Normal Bowel Sounds
[2024-03-01 10:33] LABS: Mean Corp Hgb Conc. 33.6 g/dL (33.0-37.0); Mean Corpuscular Volume 94.9 fL (80.0-94.0); Mean Platelet Volume 9.4 fL (7.4-10.4); Platelet Count 226 10^3/uL (130-400); Red Blood Cell Count 2.54 10^6/uL (4.70-6.10); Red Cell Dist. Width 19.9 % (11.5-14.5)
--- NOTE | 2024-03-01 10:54 | CM ---
Plan for d/c in the next 24-48 hours. CM introduced self and role and explained IMM. Patient in agreement of signing IMM at 10:45am. Copy given to patient. Signed original placed in chart.
[2024-03-01 12:20] LABS: Glucose - Point of Care 93 mg/dl (70-99)
--- NOTE | 2024-03-01 13:50 | W.PN.HOSP.TC ---
Today's Communication/Plan
-
Monitor H&H
Continue Lovenox for DVT prophylaxis
Holding Eliquis until tomorrow -- resume Eliquis tomorrow assuming patient is stable
Assessment / Plan
Assessment / Plan
Physical Exam
General: No Apparent Distress and Conversant
HEENT: NormoCephalic, Moist mucous membranes
Respiratory: Clear
Cardiac: S1/S2 and Irregular Rhythm
GI: Soft, Non Tender, Non Distended and Normal Bowel Sounds
Musculoskeletal: No Cyanosis and No Edema
Skin: Warm. Dry.
Neuro: AAO x 3 and Nonfocal/grossly intact
Psych: Calm
Assessment/Plan
Coy Cruz 68 M UGIB Hgb 5.3 hemodynamically tenuous on admission. Progressive MORRISON and exertional CP x 1 week, worse over past 4 days. black stools, heme (+). on eliquis for afib. has been taking ibuprofen once daily for 2-3 weeks d/t DJD left
knee. Remote hx of gastric bypass, but no prior hx of GI bleed. Admit to IMU. PPI gtt. Kcentra given. Anticoagulation held. GI consulted. NPO, IV fluids
GI Bleed - Upper GI bleed in setting of NSAID and Anticoagulation with apixaban over the last 2 weeks or more
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
- Continue to monitor in IMU for now, if stable can transfer to telemetry/discharge tomorrow
- Diet was upgraded to Clear Liquids Diet
- As per GI, holding apixaban, last dose was 02/28/24 -- as per GI, can resume Eliquis tomorrow
- Type and screen and transfuse for goal hgb of 7
- Status post Protonix gtt
- Now on Protonix daily
- Holding losartan
- Continue to hold Eliquis as per discussion with on-call bulk cooler installer, but okay to continue Lovenox for DVT prophylaxis as per gastroenterology, appreciate gastroenterology
- GI consult recommendation appreciated
Atrial Fibrillation
- Holding apixaban as above. Rate control off any beta blockade
Type 2 Diabetes Mellitus
- Holding metformin
- blood glucose checks q 6 with sliding scale
DVT Prophylaxis: Lovenox subq (okay to continue per GI discussion on 02/29/24 and 03/01/24). SCDs.
Code Status: Full Code
Anticipated Discharge: Within 24 hours
Subjective/Interval History
-
Date of Service: March 01, 2024
Patient was seen and examined. As of this morning when he was seen, he had not had a bowel movement since his upper endoscopy yesterday. He denied any dizziness, chest pain, shortness of breath, abdominal pain or any other complaints.
Objective Data
-
Labs:
Laboratory Results
03/01/24 03/01/24 03/01/24
02:10 08:57 17:00
WBC 7.4 Pending
Hgb 6.6 L* 8.1 L D Pending
Hct 18.8 L* 24.1 L Pending
Plt Count 226 Pending
Sodium 137
Potassium 3.9
Chloride 110 H
Carbon Dioxide 18 L
BUN 23 H
Creatinine 0.8
Glucose 155 H
Calcium 8.5
Total Bilirubin 1.3
AST 33
ALT 23
Alkaline Phosphatase 50
Vital Signs:
Vital Signs
Temp Pulse Resp BP Pulse Ox
97.5 F 57 17 119/71 97
03/01/24 11:05 03/01/24 10:00 03/01/24 10:00 03/01/24 10:00 03/01/24 10:25
I&O
02/29/24 03/01/24 03/02/24
06:59 06:59 06:59
Intake Total 580 / 580 650 / 650
Output Total 800 / 800 950 / 950 350 / 350
Balance -220 / -220 -300 / -300 -350 / -350
[2024-03-01] MEDS: PROTONIX 40 MG PO (14:38)
[2024-03-01] MEDS: VITAMIN D3 (cholecalciferol) 125 MCG PO (14:39)
[2024-03-01 15:42] LABS: Glucose - Point of Care 80 mg/dl (70-99)
[2024-03-01] MEDS: LOVENOX 40 MG SC (17:32)
[2024-03-01 17:37] LABS: Hematocrit 27.8 % (39.0-52.0); Hemoglobin 9.3 g/dL (13.0-18.0); Mean Corp Hgb Conc. 33.5 g/dL (33.0-37.0); Mean Corpuscular Hgb 32.2 pg (27.0-31.0); Mean Corpuscular Volume 96.2 fL (80.0-94.0); Mean Platelet Volume 9.5 fL (7.4-10.4); Platelet Count 273 10^3/uL (130-400); Red Blood Cell Count 2.89 10^6/uL (4.70-6.10); Red Cell Dist. Width 19.9 % (11.5-14.5); White Blood Cell Count 9.9 10^3/uL (4.8-10.8)
--- NOTE | 2024-03-01 19:08 | PTCARENOTE ---
Rec'd pt this AM. reports feeling much better. repeat labs show improvement in Hgb x2. tolerating clear liquid diet, vital signs stable.
[2024-03-01] MEDS: PRAVACHOL 10 MG PO (20:28)
[2024-03-01 21:13] LABS: Glucose - Point of Care 99 mg/dl (70-99)
[2024-03-02] VITALS (7 sets, daily range): BP systolic 113–147; BP diastolic 54–83; BMI 38.8
[2024-03-02 05:08] LABS: Hematocrit 22.6 % (39.0-52.0); Hemoglobin 7.7 g/dL (13.0-18.0); Mean Corp Hgb Conc. 34.1 g/dL (33.0-37.0); Mean Corpuscular Hgb 31.8 pg (27.0-31.0); Mean Corpuscular Volume 93.4 fL (80.0-94.0); Mean Platelet Volume 9.6 fL (7.4-10.4); Platelet Count 256 10^3/uL (130-400); Red Blood Cell Count 2.42 10^6/uL (4.70-6.10); Red Cell Dist. Width 18.9 % (11.5-14.5); White Blood Cell Count 6.8 10^3/uL (4.8-10.8)
[2024-03-02 05:21] LABS: Blood Urea Nitrogen 16 mg/dl (9-20); Calcium 8.5 mg/dl (8.4-10.2); Carbon Dioxide 21 mmol/L (22-30); Chloride 107 mmol/L (98-107); Estimated Creatinine Clearance 123 ml/min; Glucose 90 mg/dl (70-99); Potassium 3.8 mmol/L (3.5-5.1); Sodium 137 mmol/L (135-145); eGFR > 60.00
[2024-03-02 05:31] LABS: Magnesium 1.7 mg/dl (1.6-2.3)
--- NOTE | 2024-03-02 06:41 | PTCARENOTE ---
No episodes of melena overnight. AM hgb 7.7. OOB to chair. No complaints of dizziness or SOB. Remains on room air.
--- NOTE | 2024-03-02 06:48 | W.PN.HOSP.TC ---
Today's Communication/Plan
-
Likely dc today
Resume Eliquis
Assessment / Plan
Assessment / Plan
Physical Exam
General: No Apparent Distress and Conversant
HEENT: NormoCephalic, Moist mucous membranes
Respiratory: Clear
Cardiac: S1/S2 and Irregular Rhythm
GI: Soft, Non Tender, Non Distended and Normal Bowel Sounds
Musculoskeletal: No Cyanosis and No Edema
Skin: Warm. Dry.
Neuro: AAO x 3 and Nonfocal/grossly intact
Psych: Calm
Assessment/Plan
Coy Cruz 68 M UGIB Hgb 5.3 hemodynamically tenuous on admission. Progressive MORRISON and exertional CP x 1 week, worse over past 4 days. black stools, heme (+). on eliquis for afib. has been taking ibuprofen once daily for 2-3 weeks d/t DJD left
knee. Remote hx of gastric bypass, but no prior hx of GI bleed. Admit to IMU. PPI gtt. Kcentra given. Anticoagulation held. GI consulted. NPO, IV fluids
GI Bleed/ acute blood loss anemia - Upper GI bleed in setting of NSAID and Anticoagulation with apixaban over the last 2 weeks or more
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
- Stable over night, no bleeding
- Diet was upgraded to low residue
- As per GI, holding apixaban, last dose was 02/28/24 -- as per GI, can resume Eliquis today
- Type and screen and transfuse for goal hgb of 7
- Status post Protonix gtt
- Now on Protonix daily
- GI consult recommendation appreciated
# Paroxysmal Atrial Fibrillation
- resuming Eliquis
Type 2 Diabetes Mellitus
- Holding metformin
- blood glucose checks q 6 with sliding scale
DVT Prophylaxis: Lovenox subq (okay to continue per GI discussion on 02/29/24 and 03/01/24). SCDs.
Code Status: Full Code
Total discharge time spent to see the patient on the floor, examine the patient, review data and lab results, discuss discharge plan with patient, nursing staff around 65 minutes
Anticipated Discharge: Today
Subjective/Interval History
-
Date of Service: March 02, 2024
No chest pain, no abd pain
Wants to eat real food , would like to go home after lunch, no rectal bleeding
Objective Data
-
Labs:
Laboratory Results
03/02/24 03/02/24
04:28 12:00
WBC 6.8
Hgb 7.7 L Pending
Hct 22.6 L
Plt Count 256
Sodium 137
Potassium 3.8
Chloride 107
Carbon Dioxide 21 L
BUN 16
Creatinine 0.7
Glucose 90
Calcium 8.5
Vital Signs:
Vital Signs
Temp Pulse Resp BP Pulse Ox
97.7 F 69 13 121/70 95
03/02/24 03:55 03/02/24 06:00 03/02/24 06:00 03/02/24 04:00 03/02/24 06:00
I&O
02/29/24 03/01/24 03/02/24
06:59 06:59 06:59
Intake Total 580 / 580 650 / 650 754 / 754
Output Total 800 / 800 950 / 950 3100 / 3100
Balance -220 / -220 -300 / -300 -2346 / -2346
[2024-03-02] MEDS: PROTONIX 40 MG PO (07:44)
[2024-03-02] MEDS: VITAMIN D3 (cholecalciferol) 125 MCG PO (07:44)
[2024-03-02] MEDS: FOLVITE 1 MG PO (07:44)
--- NOTE | 2024-03-02 07:52 | PTCARENOTE ---
received patient at change of shift. Pt AAOX3, OOB in chair waiting for breakfast. denies pain. Afib on telemetry heart [id number]. pulses palpable, no edema. pt on room air, lung sounds clear. active bowel sounds. voiding without difficulty. pt
reports feeling ready to go home. pt updated on plan of care. see worklist for full nursing assessment and interventions.
[2024-03-02 07:54] LABS: Glucose - Point of Care 88 mg/dl (70-99)
[2024-03-02] MEDS: ELIQUIS 5 MG PO (09:30)
--- NOTE | 2024-03-02 10:10 | PN.CDI ---
Addendum entered and electronically signed by Vidya Burgos MD 03/02/24 10:58:
Hypotension with metabolic acidosis
Original Note:
CDI
- -
CDI:
Physician Documentation Request
Admit Date: 02/28/24 21:02
Dear Doctor Loretta,
Clinical Indicators:
Patient admitted with acute GI bleeding.
02/28 GI consult,'He was mildly hypotensive with BPs in the 90/60s and tachycardic, but has remained hemodynamically stable with fluid resuscitation'
03/01 PN, 'Hgb 5.3 hemodynamically tenuous on admission'
PRBCs 4 units transfused + NSS 250 ml bolus x 2
Serum bicarbonate levels:
02/28/24 02/29/24
18:40 04:07
Carbon Dioxide 17 L 16 L
MAP trend on admission:
02/28/24
21:31 02/28/24
22:29 02/28/24
23:00
MAP (cuff-Consuelo Monitor) 56 56 40
Please clarify which of the following is the most likely etiology of the above symptoms and treatment rendered:
Hemorrhagic shock
Hypotension with metabolic acidosis
Other, please specify
Use of terms such as suspected, likely, concern for, or probable (associated with a specific diagnosis that is being evaluated, monitored, or treated as if it exists) are acceptable and can be coded in the inpatient setting, when documented at the
time of discharge.
Thank you,
Anna Laws RN BSN
CDI Specialist
available via tiger text
Please use your independent medical judgment in providing your response.
--- NOTE | 2024-03-02 10:24 | W.PN.GI.CBS2 ---
Today's Communication / Plan
-
Repeat H&H in afternoon, if stable, okay for d/c today on AC
Assessment / Plan
-
68-year-old male with past medical history of A-fib on Eliquis, type 2 diabetes on metformin and ozempic (last dose 02/26), hx CHELSI, RA on Humira and MTX, Hx gastric bypass (2001), HTN, hx seizure d/o, nephrolithiasis admitted with dizziness,
shortness of breath and black tarry stool in the setting of heavy NSAID use. Hemoglobin on arrival 5.3, Kcentra given in ER. He was mildly hypotensive with BPs in the 90/60s and tachycardic, responded well to IVF. He has received a total 4 units of
PRBC since admission (3 upon arrival, 1 unit this morning), current hgb 8.1.
Hgb 5.3 --> 6.1 --> 7.2 --> 7.0 --> 6.6 --> 8.1 --> 9.3 --> 7.7
BUN elevated to 53 --> 52 --> 33 --> 23--> 16
He is s/p EGD on 03/01 with successful treatment of actively bleeding AVMs. Due to his anticoagulation, therapeutic intervention was somewhat limited, so multiple modalities were utilized in attempt to obtain adequate and definitive hemostasis,
including, injection with epinephrine, placement of hemostatic clips on actively bleeding AVMs as well as application of hemospray. At the end of the procedure, there were no signs of ongoing bleeding. Hgb down to 7.7 from 9.3. yesterday, however,
he has had no bowel movements. I feel the 9.3 may be inaccurate, as no signs of ongoing GI bleeding, BUN 23 --> 16
Plan/Recommendations:
-c/w PO PPI
-advance to regular diet
-okay to resume anticoagulation
-would keep for 1 additional CBC, okay to discharge if stable
-patient counseled on avoidance of NSAIDs
Subjective
Subjective
Date of Service: March 02, 2024
Patient seen in follow-up this morning. Reports feeling great. No bowel movements overnight. Hgb 8.1 --> 9.3 --> 7.7. BUN 23 --> 16
Objective
Data Reviewed
Laboratory Data:
Laboratory Results
03/02/24 12:00
03/02/24 04:28
Laboratory Results
PT 18.9 Sec (11.4-14.6) H 02/29/24 04:07
INR 1.56 02/29/24 04:07
APTT 33.2 Sec (23.4-35.0) 02/28/24 21:19
Magnesium 1.7 mg/dl (1.6-2.3) 03/02/24 04:28
Total Bilirubin 1.3 mg/dl (0.2-1.3) 03/01/24 08:57
AST 33 U/L (17-59) 03/01/24 08:57
ALT 23 U/L (0-50) 03/01/24 08:57
Alkaline Phosphatase 50 U/L (38-126) 03/01/24 08:57
Vital Signs and I&O:
Vital Signs
Temp Pulse Resp BP Pulse Ox
97.8 F 49 11 126/74 98
03/02/24 07:14 03/02/24 06:31 03/02/24 06:31 03/02/24 06:31 03/02/24 07:58
I&O
03/01/24 03/02/24 03/03/24
06:59 06:59 06:59
Intake Total 650 / 650 754 / 754
Output Total 950 / 950 3100 / 3100
Balance -300 / -300 -2346 / -2346
Physical Exam
Physical Exam
HEENT: Anicteric and Moist mucous membranes
GI: Soft, Non Distended and Normal Bowel Sounds
--- NOTE | 2024-03-02 10:39 | PN.CDI ---
Addendum entered and electronically signed by Vidya Burgos MD 03/02/24 10:58:
Yes, GI bleeding is related to/associated with/due to Apixaban and NSAID use.
Original Note:
CDI
- -
CDI:
Physician Documentation Request
Admit Date: 02/28/24 21:02
Dear Doctor Loretta,
Clinical Indicators:
Patient admitted with acute GI bleeding.
02/27 Kcentra x 1 dose given.
Apixaban held 02/27-03/01
03/02 PN, 'GI Bleed/ acute blood loss anemia - Upper GI bleed in setting of NSAID and Anticoagulation with apixaban over the last 2 weeks or more'
Please clarify the relationship between these conditions:
Yes, GI bleeding is related to/associated with/due to Apixaban and NSAID use.
No, GI bleeding is not related to/associated with/due to Apixaban and NSAID use but it is due to ___. (Please specify)
Unable to determine
Use of terms such as suspected, likely, concern for, or probable (associated with a specific diagnosis that is being evaluated, monitored, or treated as if it exists) are acceptable and can be coded in the inpatient setting, when documented at the
time of discharge.
Thank you,
Anna Laws RN BSN
CDI Specialist
available via tiger text
Please use your independent medical judgment in providing your response.
[2024-03-02 11:41] LABS: Glucose - Point of Care 91 mg/dl (70-99)
[2024-03-02 12:23] LABS: Hemoglobin 8.2 g/dL (13.0-18.0)
--- NOTE | 2024-03-02 13:02 | W.DCSUMMARY ---
Discharge Summary
Discharge Data
Date of Admission: 02/28/24
Date of Discharge: 03/02/24
-
Pending Results: No
Hospital Course
65 years old male with history of atrial fibrillation on Eliquis who presented to the hospital with melena and dizziness. His hemoglobin on arrival was 5.3. Patient was given Kcentra in the emergency room. He was mildly hypotensive and
tachycardic. Patient was admitted to high-level care/intermediate unit. He received total of 4 units of red blood cells since admission. Hemoglobin stabilized around 8. Patient was evaluated by vending machine host/hostess. He had upper endoscopy with
successful treatment of active bleeding arteriovenous malformations. Diet was introduced slowly. He was started on Protonix pump inhibitor. Eliquis was resumed. Patient did not have recurrent melena. He reported improvement with good tolerance
to diet. He denied further dizziness. No hypotension. Patient remained hemodynamic stable. Patient was discharged in a stable condition. Patient was advised to do follow-up blood work in the outpatient setting and was giving a script for that.
Discharge Plan
-
Patient Disposition: Home (Routine Discharge)
Discharge Diagnosis/Procedures: Acute blood loss anemia/ rectal bleeding due to actively bleeding AVMs exacerbated by Eliquis. Recommend avoidance of NSAIDs, repeat CBC in one week, follow with your family doctor.
Condition: Good
Diet: As tolerated
Blood Work: CBC & BMP in 5-7 days
Referrals:
Isael Recinos DO [Family Provider] - in less than 1 week
Goldie James DO [Active] - in one month
Prescriptions:
New
pantoprazole 40 mg Tablet,Delayed Release (Dr/Ec)
40 mg PO DAILY Qty: 30 0RF
Continued
metformin 500 mg Tablet
500 mg PO DAILY
pravastatin 10 mg Tablet
10 mg PO HS
folic acid 1 mg Tablet
1 mg PO DAILY
losartan 100 mg Tablet
100 mg PO DAILY
Eliquis 5 mg Tablet
5 mg PO BID
Humira(CF) 40 mg/0.4 mL Syringe Kit
40 mg SC WE
Ozempic 1 mg/dose (4 mg/3 mL) Pen Injector
1 mg SC WE
methotrexate 50 mg/2 ml
1 ml SC WE
ferrous sulfate 325 mg (65 mg iron) Tablet
325 mg PO BID
tadalafil 10 mg Tablet
10 mg PO DAILYPRN PRN (Reason: ed)
cholecalciferol (vitamin D3) 125 mcg (5,000 unit) Tablet
125 mcg PO DAILY
Discharge Orders:
Discharge Patient (As Directed); Ordered 03/02/24
Ordered By: Vidya Burgos
Discharge Date and Time
Discharge Date/Time: 03/02/24 14:05
Print Language: URUGUAYAN
[2024-03-02] MEDS: FLUAD (65 yr+) 2024-2025 FORMULA 0.5 ML IM (13:43)
--- NOTE | 2024-03-02 17:26 | CM ---
Patient with Dx Acute blood loss anemia/ rectal bleeding.
Spoke with patient who was preparing for discharge. The patient says he feels ready for discharge home today. IMM completed yesterday. The patient plans on driving himself home.
No CM d/c needs identified.
Plan home today.
== END 2024-03-02 14:05 | disposition home or self-care (01) | DRG 378 ==
LOC: IMU 21:02
PROVIDERS: Emergency Medicine; Hospitalist; Nurse Practitioner Adult Health; ADMITTING PHYSICIAN Internal Medicine; ATTENDING PHYSICIAN Internal Medicine; CONSULT PHYSICIAN Internal Medicine; EMERGENCY PHYSICIAN Emergency Medicine; FAMILY PHYSICIAN Family Medicine
PROC: 30283B1 Transfusion of Nonautologous 4-Factor Prothrombin Complex Concentrate into Vein, Percutaneous Approach (ICD-10-PCS; 2024-02-28)
PROC: XW0G886 Introduction of Mineral-based Topical Hemostatic Agent into Upper GI, Via Natural or Artificial Opening Endoscopic, New Technology Group 6 (ICD-10-PCS; 2024-02-29)
PROC: 0W3P8ZZ Control Bleeding in Gastrointestinal Tract, Via Natural or Artificial Opening Endoscopic (ICD-10-PCS; 2024-02-29)
PROC: 30233N1 Transfusion of Nonautologous Red Blood Cells into Peripheral Vein, Percutaneous Approach (ICD-10-PCS; 2024-02-29)
PROC: 3E02340 Introduction of Influenza Vaccine into Muscle, Percutaneous Approach (ICD-10-PCS; 2024-03-02)
DX: K31.811 Angiodysplasia of stomach and duodenum with bleeding (principal); D62 Acute posthemorrhagic anemia; I48.20 Chronic atrial fibrillation, unspecified; D68.32 Hemorrhagic disorder due to extrinsic circulating anticoagulants; E87.20 Acidosis, unspecified; Z79.84 Long term (current) use of oral hypoglycemic drugs; Z79.01 Long term (current) use of anticoagulants; I48.0 Paroxysmal atrial fibrillation; I95.1 Orthostatic hypotension; I20.9 Angina pectoris, unspecified; I10 Essential (primary) hypertension; R19.7 Diarrhea, unspecified; D50.9 Iron deficiency anemia, unspecified; Z98.84 Bariatric surgery status; M06.9 Rheumatoid arthritis, unspecified; E11.9 Type 2 diabetes mellitus without complications; M17.0 Bilateral primary osteoarthritis of knee; E53.8 Deficiency of other specified B group vitamins; E66.9 Obesity, unspecified; Z68.38 Body mass index [BMI] 38.0-38.9, adult; E78.00 Pure hypercholesterolemia, unspecified; Z87.442 Personal history of urinary calculi; Z79.899 Other long term (current) drug therapy; Z87.11 Personal history of peptic ulcer disease; Z87.891 Personal history of nicotine dependence; Z88.5 Allergy status to narcotic agent; Z96.651 Presence of right artificial knee joint; T45.515A Adverse effect of anticoagulants, initial encounter; T39.395A Adverse effect of other nonsteroidal anti-inflammatory drugs [NSAID], initial encounter; Z23 Encounter for immunization
CPT/HCPCS: 36430; 71045; 80048; 80053; 82607; 82728; 82746; 82962; 83540; 83550; 83735; 83880; 84484; 85014; 85018; 85025; 85027; 85610; 85730; 86850; 86900; 86901; 86920; 90662; 93005; 96365; 96366; 96375; 99291; C1052; G0008; J1364; J7168; P9016

== ENCOUNTER → 2024-08-07 07:05 | Outpatient (REF) | payer OTHER, SELFPAY | LOC: HWRCS 07:05 | PROVIDERS: ATTENDING PHYSICIAN Internal Medicine Cardiovascular Disease; FAMILY PHYSICIAN Family Medicine | DX: I48.11 Longstanding persistent atrial fibrillation (principal) | CPT/HCPCS: 93306 ==